=== PATIENT | female | born 1970 | race African-American/Black ===

== ENCOUNTER 2019-06-07 11:54 | Emergency (ER) | payer SELFPAY ==
[~2019-06-07] VITALS: Ht 162.6 cm; Wt 70.3 kg
[2019-06-07 12:05] VITALS: BP 112/78
--- NOTE | 2019-06-07 12:25 | Emergency Room Report ---
History of Present Illness General Chief Complaint: Pain Source: Patient Present Illness HPI 48-year-old female presents to the emergency department complaining of acute onset of 8 out of 10 severity joint pain, swelling and stiffness in bilateral feet, ankles, knees, wrists and fingers x1 day. Patient also reports some lid swelling, itching, and dryness to her eyes bilaterally she denies foreign body sensation she denies visual changes, blurry vision, floaters, flashing light or loss of vision. Patient reports she has a history of allergies in the past where her throat closed up and she was prescribed EpiPen. Patient states she used her EpiPen today and it did not provide any relief of her symptoms. She denies eye discharge she reports some redness. She denies contact lens use. 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 Denies erythema or warmth to any of the joints she denies fevers, chills, recent illness, cough, shortness of breath, swelling of the lips or tongue. She denies rash. Patient does report history of chlamydia gonorrhea which was not treated for almost 2 weeks in 2016. Patient denies urinary symptoms at this time. Denies familial history of autoimmune diseases. No other aggravating or relieving factors at this time. Patient denies trauma or fall. Allergies: Coded Allergies: MORPHINE (Verified Allergy, Unknown, 06/07/19) Patient History Past Medical History: see triage record, other - 2016 treated for G & C. Past Surgical History: none Pertinent Family History: none Last Menstrual Period: n/a Now: No Reviewed Nursing Documentation: PMH: Agreed; PSxH: Agreed Nursing Documentation-PMH Past Medical History: No Stated History Review of Systems All Other Systems: negative except mentioned in HPI Physical Exam Vital Signs Date Time Temp Pulse Resp B/P (MAP) Pulse Ox O2 Delivery O2 Flow Rate FiO2 06/07/19 12:02 98.2 83 18 112/78 (89) 98 Room Air Sp02 EP Interpretation: reviewed, normal General Appearance: alert, GCS 15, non-toxic, mild distress Head: normocephalic, atraumatic Eyes: bilateral eye normal inspection, bilateral eye PERRL, bilateral eye lid inflammation - Bilateral upper and lower lid edema noted, no purulent d/c no crusting, mild conjunctival injection, no increased lacrimation. no obvious fb' s. ENT: hearing grossly normal, normal voice Neck: full range of motion Respiratory: lungs clear, normal breath sounds, no respiratory distress, no wheezing, speaking full sentences Cardiovascular #1: regular rate, rhythm, no edema, normal capillary refill Cardiovascular #2: 2+ radial (R), 2+ radial (L), 2+ dorsalis pedis (R), 2+ dorsalis pedis (L) Musculoskeletal: back normal, gait/station normal, normal range of motion - with some pain., tender - TTP and Stiffness to the Bilateral ankles, knees, wrists and metacarpal joints. No erythema or warmth some mild swelling. Full range of motion with pain exacerbation upon extension. Neurologic: alert, oriented x3, responsive, motor strength/tone normal, sensory intact, normal gait, speech normal, grossly normal Psychiatric: judgement/insight normal Skin: no rash, other - No inflammation/erythema/warmth. Lymphatic: no adenopathy Medical Decision Making PA Attestation Dr. Aly is my supervising Physician whom patient management has been discussed with. Diagnostic Impression: Primary Impression: Multiple joint pain Additional Impression: Conjunctivitis Qualified Codes: H10.13 - Acute atopic conjunctivitis, bilateral ER Course 48-year-old female presents to the emergency department complaining of acute onset of 8 out of 10 severity joint pain, swelling and stiffness in bilateral feet, ankles, knees, wrists and fingers x1 day. Patient also reports some lid swelling, itching, and dryness to her eyes bilaterally she denies foreign body sensation she denies visual changes, blurry vision, floaters, flashing light or loss of vision. Patient reports she has a history of allergies in the past where her throat closed up and she was prescribed EpiPen. Patient states she used her EpiPen today and it did not provide any relief of her symptoms. She denies eye discharge she reports some redness. She denies contact lens use. 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 Denies erythema or warmth to any of the joints she denies fevers, chills, recent illness, cough, shortness of breath, swelling of the lips or tongue. She denies rash. Patient does report history of chlamydia gonorrhea which was not treated for almost 2 weeks in 2016. Patient denies urinary symptoms at this time. Denies familial history of autoimmune diseases. No other aggravating or relieving factors at this time. Patient denies trauma or fall. Ddx considered but are not limited to arthritis, reactive arthritis, septic joint, immune disorder, allergic reaction, sprain/Strain/Spasm just to name a few Vital signs: are WNL, pt. is afebrile H&PE are most consistent with knee strain/ overuse. ORDERS: ED INTERVENTIONS: - Prednisone 60mg PO -Toradol IM -Tylenol PO Re-Evaluation: pt. states his pain has subsided with ED interventions -I do not identify an emergent condition at this time. With current presentation , pt. is stable for close outpatient follow up and conservative treatment. D/ w pt. to return promptly to ED with worsening or new symptoms.- Pt. verbalizes' understanding and agreement with proposed treatment plan. DISCHARGE: At this time pt. is stable for d/c to home. Will provide printed patient care instructions, and any necessary prescriptions. Care plan and follow up instructions have been discussed with the patient prior to discharge. Last Vital Signs Date Time Temp Pulse Resp B/P (MAP) Pulse Ox O2 Delivery O2 Flow Rate FiO2 06/07/19 12:02 98.2 83 18 112/78 (89) 98 Room Air Disposition: HOME, SELF-CARE Condition: Stable Scripts Olopatadine Hcl (PATADAY) 2.5 Ml Drops 1 DRP OP DAILY, #2.5 ML Prov: Esther Bird 06/07/19 Ibuprofen* (MOTRIN*) 600 Mg Tablet 600 MG ORAL THREE TIMES A DAY, #30 TAB 0 Refills Prov: Esther Bird 06/07/19 Prednisone* (PREDNISONE*) 20 Mg Tablet 40 MG ORAL DAILY for 5 Days, #10 TAB Prov: Esther Bird 06/07/19 Patient Instructions: Allergic Conjunctivitis, Tbql-al-Ejti, Joint Pain, Easy- to-Read Additional Instructions: Take medications as directed. Follow up with a Primary Care Provider in 3-5 days, even if your symptoms have resolved. --Please review list of primary care clinics, if you do not already have a primary care provider Return sooner to ED if new symptoms occur, or current symptoms become worse. Do not drink alcohol, drive, or operate heavy machinery while taking Tylenol # 3 as this may cause drowsiness. - Please note that this Emergency Department Report was dictated using [employer] pathologist technology software, occasionally this can lead to erroneous entry secondary to interpretation by the dictation equipment. Esther Bird Jun 07, 2019 12:25
[2019-06-07] MEDS ORDERED: PATADAY2.5 ML OP (12:30)
[2019-06-07] MEDS ORDERED: IBUPROFEN600 MG ORAL (12:30)
[2019-06-07] MEDS ORDERED: PREDNISONE20 MG ORAL (12:30)
[2019-06-07 12:45] VITALS: BP 118/72
[2019-06-07] MEDS ORDERED: Acetaminophen 500mg (ES) tab ORAL ONE (12:45)
[2019-06-07] MEDS ORDERED: Ketorolac 30mg Inj IM ONE (12:45)
== END 2019-06-07 12:40 | disposition home or self-care (01) ==
LOC: EMR 12:30
DX: M25.50 Pain in unspecified joint (principal); H10.13 Acute atopic conjunctivitis, bilateral; Z88.6 Allergy status to analgesic agent
CPT/HCPCS: 96372; 99283